=== PATIENT | female | born 1950 | race Caucasian/White ===

== ENCOUNTER 2023-05-31 05:26 | Observation (INO) ==
--- NOTE | 2023-04-20 16:23 | PAT Medication Instructions ---
Medication Instructions Date of Service April 20, 2023 Home Medications amitriptyline 25 mg tablet 25 mg PO DAILY amlodipine 5 mg tablet 5 mg PO DAILY atorvastatin 40 mg tablet 40 mg PO DAILY calcium carbonate 500 mg calcium (1,250 mg) tablet 500 mg PO DAILY ciprofloxacin 0.3 %-dexamethasone 0.1 % ear drops,suspension 4 drp otic (ear) BID diclofenac sodium 1 % topical gel 4 g topical QID fenofibrate 54 mg tablet 54 mg PO DAILY fluticasone propionate 50 mcg/actuation nasal spray,suspension 1 spray intranasal DAILY glipizide 10 mg tablet 10 mg PO DAILY lisinopril 5 mg tablet 5 mg PO DAILY magnesium 250 mg tablet 250 mg PO DAILY metformin 1,000 mg tablet 1,000 mg PO DAILY mirabegron 25 mg tablet,extended release 24 hr (Myrbetriq) 25 mg PO DAILY multivitamin 1 tab PO DAILY omega 0-lir-cnd-fish oil 1,200 mg (144 mg-216 mg) capsule (Fish Oil) 1 cap PO DAILY omeprazole 40 mg capsule,delayed release 40 mg PO DAILY peg 400-propylene glycol 0.4 %-0.3 % eye drops 1 drp ophthalmic (eye) BID PRN Dry Eye(S) potassium chloride 20 mEq oral packet 20 meq PO DAILY sitagliptin phosphate 50 mg tablet (Januvia) 50 mg PO DAILY tenofovir disoproxil fumarate 300 mg tablet 300 mg PO DAILY tolterodine 2 mg tablet 2 mg PO DAILY Continue as directed (With a small sip of water if medications scheduled to be taken in the morning, OTHERWISE NOTHING TO EAT OR DRINK AFTER MIDNIGHT:) amlodipine 5 mg tablet 5 mg PO DAILY atorvastatin 40 mg tablet 40 mg PO DAILY ciprofloxacin 0.3 %-dexamethasone 0.1 % ear drops,suspension 4 drp otic (ear) BID fluticasone propionate 50 mcg/actuation nasal spray,suspension 1 spray intranasal DAILY omeprazole 40 mg capsule,delayed release 40 mg PO DAILY peg 400-propylene glycol 0.4 %-0.3 % eye drops 1 drp ophthalmic (eye) BID PRN Dry Eye(S) ASK your surgeon for instructions diclofenac sodium 1 % topical gel 4 g topical QID ASK your prescriber and surgeon amitriptyline 25 mg tablet 25 mg PO DAILY tenofovir disoproxil fumarate 300 mg tablet 300 mg PO DAILY STOP taking 2 weeks before surgery omega 5-fgo-hpf-fish oil 1,200 mg (144 mg-216 mg) capsule (Fish Oil) 1 cap PO DAILY STOP taking 48 hours before surgery fenofibrate 54 mg tablet 54 mg PO DAILY DO NOT take the morning of surgery calcium carbonate 500 mg calcium (1,250 mg) tablet 500 mg PO DAILY glipizide 10 mg tablet 10 mg PO DAILY lisinopril 5 mg tablet 5 mg PO DAILY magnesium 250 mg tablet 250 mg PO DAILY metformin 1,000 mg tablet 1,000 mg PO DAILY mirabegron 25 mg tablet,extended release 24 hr (Myrbetriq) 25 mg PO DAILY multivitamin 1 tab PO DAILY potassium chloride 20 mEq oral packet 20 meq PO DAILY sitagliptin phosphate 50 mg tablet (Januvia) 50 mg PO DAILY tolterodine 2 mg tablet 2 mg PO DAILY Other Notes If you have any questions please call us at [phone] or [phone] or [phone] or [phone]
--- NOTE | 2023-04-27 14:25 | Anesthesiology Consultation ---
Date of Service April 27, 2023 Assessment & Plan (1) Encounter for pre-operative examination: - Check BSG AM DOS - Infectious disease screening: Per assessment on 04/27/23: No known infectious disease contacts or current infectious disease symptoms. No noted Covid positive test result in past 90 days. - Outpatient joint pathway: Per OR booking comments, plan for outpatient joint program. Patient seen at [facility] 04/27/23. Patient is an acceptable candidate to proceed as possible outpatient joint pathway pending perioperative course. Surgeon's office arranging post-op home management. - Preop testing: Patient unable to void at [facility] visit- per PAT tech, patient planning to drop off urine sample in near future to [place] [facility] (if unable to get to [place] labs, alternative plan to have done at PCP office). Awaiting surgeon-ordered preop UA. Patient otherwise acceptable risk for surgery. Chart Review Chart Review: Patient seen in Pre Admission Testing Teaching & Discussion Pre-Anesthesia Teaching/Discussion Notes: Instructed NPO after midnight before surgery,except medications with 15 cc of water. Medication instructions provided according to the [facility] guidelines. History Surgery Operation Date: 05/31/23 07:15 Proposed Procedures p OP: Right Total Knee Replacement - Horace Mcmahon MD Height/Weight Height: 5 ft 4 in Weight: 60.7 kg Allergies Allergy/AdvReac Type Severity Reaction Status Date / Time Sulfa (Sulfonamide Allergy Unknown Unknown Verified 04/27/23 14:43 Antibiotics) remote reaction Medications Home Medications Medication Instructions Recorded Confirmed Last Taken amitriptyline 25 mg tablet 25 mg PO DAILY 04/20/23 04/20/23 Unknown amlodipine 5 mg tablet 5 mg PO DAILY 04/20/23 04/20/23 Unknown atorvastatin 40 mg tablet 40 mg PO DAILY 04/20/23 04/20/23 Unknown calcium carbonate 500 mg calcium 500 mg PO DAILY 04/20/23 04/20/23 Unknown (1,250 mg) tablet ciprofloxacin 0.3 %-dexamethasone 4 drp otic (ear) BID 04/20/23 04/20/23 Unknown 0.1 % ear drops,suspension diclofenac sodium 1 % topical gel 4 g topical QID 04/20/23 04/20/23 Unknown fenofibrate 54 mg tablet 54 mg PO DAILY 04/20/23 04/20/23 Unknown fluticasone propionate 50 1 spray intranasal DAILY 04/20/23 04/20/23 Unknown mcg/actuation nasal spray,suspension glipizide 10 mg tablet 10 mg PO DAILY 04/20/23 04/20/23 Unknown lisinopril 5 mg tablet 5 mg PO DAILY 04/20/23 04/20/23 Unknown magnesium 250 mg tablet 250 mg PO DAILY 04/20/23 04/20/23 Unknown metformin 1,000 mg tablet 1,000 mg PO DAILY 04/20/23 04/20/23 Unknown mirabegron 25 mg tablet,extended 25 mg PO DAILY 04/20/23 04/20/23 Unknown release 24 hr (Myrbetriq) multivitamin 1 tab PO DAILY 04/20/23 04/20/23 Unknown omega 2-cuz-mix-fish oil 1,200 mg 1 cap PO DAILY 04/20/23 04/20/23 Unknown (144 mg-216 mg) capsule (Fish Oil) omeprazole 40 mg capsule,delayed 40 mg PO DAILY 04/20/23 04/20/23 Unknown release peg 400-propylene glycol 0.4 %-0.3 1 drp ophthalmic (eye) BID PRN Dry 04/20/23 04/20/23 Unknown % eye drops Eye(S) potassium chloride 20 mEq oral 20 meq PO DAILY 04/20/23 04/20/23 Unknown packet sitagliptin phosphate 50 mg tablet 50 mg PO DAILY 04/20/23 04/20/23 Unknown (Januvia) tenofovir disoproxil fumarate 300 300 mg PO DAILY 04/20/23 04/20/23 Unknown mg tablet tolterodine 2 mg tablet 2 mg PO DAILY 04/20/23 04/20/23 Unknown Past Medical History Medical History Diabetes mellitus, type 2 GERD (gastroesophageal reflux disease) History of hepatitis B Taking MEDICATION, no recent issues Hyperlipidemia Hypertension Nasal hemorrhage Hx 2021, treatment "with balloon" in [facility] Overactive bladder Exercise / Class Metabolic Activity II 4-5 Yardwork/Stairs/Walk up hill Past Family History Family History Son Diabetes Past Surgical History Surgical History History of cataract surgery R/L History of cholecystectomy History of colonoscopy History of corneal transplant History of endoscopic sinus surgery History of tooth extraction Hx of breast biopsy with cyst excision Hx of breast surgery Cyst removal Past Anesthesia History No Hx of Anesthesia Complications and No Family Hx of Anesthesia Complications History of PONV No Hx of PONV and No Hx of Motion Sickness Social History Smoking Status: Former smoker Do You Dip or Chew Tobacco: No Smoking End Date: Quit 2021 Hx Alcohol Use: No Hx Substance Use: No substance use type: does not use Review of Systems Patient denies chest pain, shortness of breath, dyspnea on exertion, fever, chills, cough, wheezing, palpitations. Physical Exam Vital Signs VITALS BP 131/78 P 84 TEMP 98.7 SP02 94%RA RESP 18 PHYSICAL Full cervical extension range of motion. Full TMJ range of motion. TMD 3 finger breaths Mallampati Score 2 Dentition: full upper denture, several missing lower teeth Lungs: clear throughout to auscultation Cardiac: regular rate and rhythm, no murmurs noted Spine: normal Carotid arteries: negative bruit Extremities: no LE edema Lab Results Anesthesia Preop Results Results Anesthesia Widget: WBC 9.69 K/ul (4.8-10.8) 04/27/23 Hgb 12.0 g/dl (12.0-16.0) 04/27/23 Hct 38.0 % (37.0-47.0) 04/27/23 Plt 374 K/uL (130-400) 04/27/23 Na 138 mmol/L (136-145) 04/27/23 K 3.3 mmol/L (3.5-5.1) L 04/27/23 Cl 101 mmol/L (98-107) 04/27/23 CO2 29 mmol/L (21-32) 04/27/23 BUN 19 mg/dl (6-23) 04/27/23 Creat 0.89 mg/dl (0.6-1.2) 04/27/23 Glucose Level 106 mg/dl (70-99(Fasting)) H 04/27/23 PT 11.3 Seconds (9.0-12.0) 04/27/23 PTT 31.5 Seconds (21.0-31.0) H 04/27/23 INR 1.0 (0.9-1.1) 04/27/23 HA1c 6.7 % (4.5-5.6) H 04/27/23 Blood Type O Positive 04/27/23 Antibody Screen NEGATIVE 04/27/23 Testing Electrocardiogram Date: 04/27/23 NSR at 84bpm. Chest X-Ray Date: 04/27/23 FINDINGS: Cardiomediastinal and hilar silhouettes are within normal limits. No pneumothorax, pleural effusion, airspace consolidation or pulmonary edema. Cholecystectomy. Bones appear grossly intact. IMPRESSION: No acute process.
--- NOTE | 2023-05-30 07:26 | History & Physical Report ---
Date of Service May 30, 2023 Assessment & Plan (1) Right knee DJD: Plan: Plan is for right patient-specific total knee possible same-day surgery History of Present Illness Chief Complaint: Right knee pain Primary Care Provider: NO PCP Patient is a 72-year-old female with greater than 2-year history of right knee pain. She lives in [place] but presents to the office for evaluation because her family lives nearby. She relates weakness instability and pain 7 out of 10 with all activities of daily living. She requires a cane or walker at all times because of pain and instability. She has radiographic evidence of advanced disease and has failed both injections of both corticosteroid and viscosupplementation. She has a medical history positive for type 2 diabetes her current A1c is 6.6. Allergies Allergy/AdvReac Type Severity Reaction Status Date / Time Sulfa (Sulfonamide Allergy Unknown Unknown Verified 04/27/23 14:43 Antibiotics) remote reaction Home Medications Medication Instructions Recorded Confirmed Type amitriptyline 25 mg tablet 25 mg PO DAILY 04/20/23 04/20/23 History amlodipine 5 mg tablet 5 mg PO DAILY 04/20/23 04/20/23 History atorvastatin 40 mg tablet 40 mg PO DAILY 04/20/23 04/20/23 History calcium carbonate 500 mg calcium 500 mg PO DAILY 04/20/23 04/20/23 History (1,250 mg) tablet ciprofloxacin 0.3 %-dexamethasone 4 drp otic (ear) BID 04/20/23 04/20/23 History 0.1 % ear drops,suspension diclofenac sodium 1 % topical gel 4 g topical QID 04/20/23 04/20/23 History fenofibrate 54 mg tablet 54 mg PO DAILY 04/20/23 04/20/23 History fluticasone propionate 50 1 spray intranasal DAILY 04/20/23 04/20/23 History mcg/actuation nasal spray,suspension glipizide 10 mg tablet 10 mg PO DAILY 04/20/23 04/20/23 History lisinopril 5 mg tablet 5 mg PO DAILY 04/20/23 04/20/23 History magnesium 250 mg tablet 250 mg PO DAILY 04/20/23 04/20/23 History metformin 1,000 mg tablet 1,000 mg PO DAILY 04/20/23 04/20/23 History mirabegron 25 mg tablet,extended 25 mg PO DAILY 04/20/23 04/20/23 History release 24 hr (Myrbetriq) multivitamin 1 tab PO DAILY 04/20/23 04/20/23 History omega 7-rzi-riy-fish oil 1,200 mg 1 cap PO DAILY 04/20/23 04/20/23 History (144 mg-216 mg) capsule (Fish Oil) omeprazole 40 mg capsule,delayed 40 mg PO DAILY 04/20/23 04/20/23 History release peg 400-propylene glycol 0.4 %-0.3 1 drp ophthalmic (eye) BID PRN Dry 04/20/23 04/20/23 History % eye drops Eye(S) potassium chloride 20 mEq oral 20 meq PO DAILY 04/20/23 04/20/23 History packet sitagliptin phosphate 50 mg tablet 50 mg PO DAILY 04/20/23 04/20/23 History (Januvia) tenofovir disoproxil fumarate 300 300 mg PO DAILY 04/20/23 04/20/23 History mg tablet tolterodine 2 mg tablet 2 mg PO DAILY 04/20/23 04/20/23 History Past Med/Surg History Medical History History of hepatitis B Taking MEDICATION, no recent issues Nasal hemorrhage Hx 2021, treatment "with balloon" in [facility] GERD (gastroesophageal reflux disease) Diabetes mellitus, type 2 Overactive bladder Hyperlipidemia Hypertension Surgical History Hx of breast biopsy with cyst excision History of corneal transplant History of cataract surgery R/L History of cholecystectomy Hx of breast surgery Cyst removal History of colonoscopy History of tooth extraction History of endoscopic sinus surgery Family History Son Diabetes Social History Smoking Status: Former smoker Smoking End Date: Quit 2021; Second Hand Exposure: No; Do You Dip or Chew Tobacco: No; Tobacco Cessation Education Requested by Patient: No Hx Alcohol Use: No Hx Substance Use: No Preferred Language: Luxembourgish Communication Ability: Effective Components Engineer Required: No Beliefs That Will Affect Care: None Current Living Situation: Significant Other Other Information That Helps Us Care for You: No Feels Safe at Home: Yes Safety Concerns: Feels Safe At This Time Assistive Devices: Denture - Upper, Denture - Lower and Glasses Review of Systems Review of Systems: Knee pain Physical Exam Physical Exam: General: Thin statured woman who appears her stated age HEENT: NCAT, EOMI, PERRLA Neck: Negative bruits or JVD Heart: Regular rate and rhythm without murmurs or gallops Lungs: Breath sounds clear and present in all zimmer Abdomen: Flat soft nontender bowel sounds positive Extremities: Right knee shows varus deformity range of motion is 3 to 110 degrees passively with 3 mm medial laxity positive effusion and pain Neurological and vascular: Intact Results & Data Results & Data Vital Signs (Past 12 Hours) Weight is 54 kg BMI 21 Blood pressure 130/84 Pulse 84
--- NOTE | 2023-05-30 15:03 | History & Physical Report ---
Date of Service May 30, 2023 Assessment & Plan (1) Left knee DJD: Plan: This is an addendum to the admission history and physical Trell Gutierrez. The patient also has DJD of the left knee and will have an intra-articular injection of the left knee performed during her surgical procedure. History of Present Illness Primary Care Provider: NO PCP Allergies Allergy/AdvReac Type Severity Reaction Status Date / Time Sulfa (Sulfonamide Allergy Unknown Unknown Verified 04/27/23 14:43 Antibiotics) remote reaction Home Medications Medication Instructions Recorded Confirmed Type amitriptyline 25 mg tablet 25 mg PO DAILY 04/20/23 04/20/23 History amlodipine 5 mg tablet 5 mg PO DAILY 04/20/23 04/20/23 History atorvastatin 40 mg tablet 40 mg PO DAILY 04/20/23 04/20/23 History calcium carbonate 500 mg calcium 500 mg PO DAILY 04/20/23 04/20/23 History (1,250 mg) tablet ciprofloxacin 0.3 %-dexamethasone 4 drp otic (ear) BID 04/20/23 04/20/23 History 0.1 % ear drops,suspension diclofenac sodium 1 % topical gel 4 g topical QID 04/20/23 04/20/23 History fenofibrate 54 mg tablet 54 mg PO DAILY 04/20/23 04/20/23 History fluticasone propionate 50 1 spray intranasal DAILY 04/20/23 04/20/23 History mcg/actuation nasal spray,suspension glipizide 10 mg tablet 10 mg PO DAILY 04/20/23 04/20/23 History lisinopril 5 mg tablet 5 mg PO DAILY 04/20/23 04/20/23 History magnesium 250 mg tablet 250 mg PO DAILY 04/20/23 04/20/23 History metformin 1,000 mg tablet 1,000 mg PO DAILY 04/20/23 04/20/23 History mirabegron 25 mg tablet,extended 25 mg PO DAILY 04/20/23 04/20/23 History release 24 hr (Myrbetriq) multivitamin 1 tab PO DAILY 04/20/23 04/20/23 History omega 5-hfx-zou-fish oil 1,200 mg 1 cap PO DAILY 04/20/23 04/20/23 History (144 mg-216 mg) capsule (Fish Oil) omeprazole 40 mg capsule,delayed 40 mg PO DAILY 04/20/23 04/20/23 History release peg 400-propylene glycol 0.4 %-0.3 1 drp ophthalmic (eye) BID PRN Dry 04/20/23 04/20/23 History % eye drops Eye(S) potassium chloride 20 mEq oral 20 meq PO DAILY 04/20/23 04/20/23 History packet sitagliptin phosphate 50 mg tablet 50 mg PO DAILY 04/20/23 04/20/23 History (Januvia) tenofovir disoproxil fumarate 300 300 mg PO DAILY 04/20/23 04/20/23 History mg tablet tolterodine 2 mg tablet 2 mg PO DAILY 04/20/23 04/20/23 History Past Med/Surg History Medical History History of hepatitis B Taking MEDICATION, no recent issues Nasal hemorrhage Hx 2021, treatment "with balloon" in [facility] GERD (gastroesophageal reflux disease) Diabetes mellitus, type 2 Overactive bladder Hyperlipidemia Hypertension Surgical History Hx of breast biopsy with cyst excision History of corneal transplant History of cataract surgery R/L History of cholecystectomy Hx of breast surgery Cyst removal History of colonoscopy History of tooth extraction History of endoscopic sinus surgery Family History Son Diabetes Social History Smoking Status: Former smoker Smoking End Date: Quit 2021; Second Hand Exposure: No; Do You Dip or Chew Tobacco: No; Tobacco Cessation Education Requested by Patient: No Hx Alcohol Use: No Hx Substance Use: No Preferred Language: Bear Communication Ability: Effective Is Project Manager Required: No Beliefs That Will Affect Care: None Current Living Situation: Significant Other Other Information That Helps Us Care for You: No Feels Safe at Home: Yes Safety Concerns: Feels Safe At This Time Assistive Devices: Denture - Upper, Denture - Lower and Glasses
[2023-05-31] MEDS ORDERED: TRANEXAMIC ACID 1,000 MG **IV Intra-op IV SCH (06:00)
[2023-05-31] MEDS ORDERED: ROPIVACAINE 0.5% HCL/PF 150 MG, BUPIVACAINE 0.75% MPF 20 ML, EPINEPHrine 30MG/30ML (OR ... INSTIL SCH (06:00)
[2023-05-31] MEDS ORDERED: LIDOCAINE 1% LOCAL 20 ML VIAL INFIL SCH (06:00)
[2023-05-31] MEDS ORDERED: methylPREDNISolone acetate 80 MG/ML VIAL IA SCH (06:00)
[2023-05-31] MEDS ORDERED: GABAPENTIN 300 MG CAP PO SCH (06:00)
[2023-05-31] MEDS ORDERED: LR 500ML BOLUS, THEN 15ML/HR IV SCH (06:00)
[2023-05-31] MEDS ORDERED: ACETAMINOPHEN 500 MG TAB PO SCH (06:00)
[2023-05-31] MEDS ORDERED: TRANEXAMIC ACID 1,000 MG **IV Pre-op IV SCH (06:00)
[2023-05-31] MEDS ORDERED: LR 60ML/HR IV SCH (06:00)
[2023-05-31] MEDS ORDERED: traMADol HCL 50 MG TABLET PO SCH (06:00)
[2023-05-31] MEDS ORDERED: FAMOTIDINE 20 MG TAB PO SCH (06:00)
[2023-05-31] MEDS ORDERED: dexAMETHasone 4 MG TAB PO SCH (06:00)
[2023-05-31] MEDS ORDERED: METOCLOPRAMIDE HCL 10 MG TABLET PO SCH (06:00)
[2023-05-31] MEDS ORDERED: ceFAZolin 2000MG 2,000 MG/15 ML SYR IV SCH (06:00)
[2023-05-31] MEDS ORDERED: MEPIVACAINE HCL 1.5% 30 ML VIAL ONE (06:18)
[2023-05-31] MEDS ORDERED: ROPIVACAINE 0.5% 5 MG/ML 30 ML VIAL ONE (06:18)
--- NOTE | 2023-05-31 06:25 | History & Physical Bridge Note ---
Date of Service May 31, 2023 History & Physical Bridge Note I have examined the patient, reviewed the History & Physical and in the interval since the performance of the History & Physical I have noted the following changes of clinical significance: no changes noted
[2023-05-31] MEDS ORDERED: fentaNYL citrate PF 100 MCG/2 ML VIAL ONE (06:43)
[2023-05-31] MEDS ORDERED: LIDOCAINE 2% 2 ML VIAL/AMP(20MG/ML) INFIL ONE (06:43)
[2023-05-31] MEDS ORDERED: PROPOFOL IV EMULSION 10 MG/ML 20 ML VIAL IV ONE (06:43)
[2023-05-31] MEDS ORDERED: MIDAZOLAM HCL 1 MG/ML 2ML VIAL ONE (06:43)
[2023-05-31] MEDS ORDERED: ORTHO JOINT ANESTHETIC ONE (07:00)
[2023-05-31] MEDS ORDERED: LIDOCAINE 1% LOCAL 20 ML VIAL ONE (07:01)
[2023-05-31] MEDS ORDERED: methylPREDNISolone acetate 80 MG/ML VIAL ONE (07:01)
[2023-05-31] MEDS ORDERED: ONDANSETRON INJ 2 MG/ML 2 ML VIAL IV PRN ×2 (07:35→10:28)
[2023-05-31] MEDS ORDERED: ATROPINE SULFATE 0.1 MG/ML 10ML SYR IV PRN (07:35)
[2023-05-31] MEDS ORDERED: fentaNYL citrate PF 100 MCG/2 ML VIAL IV PRN (07:35)
[2023-05-31] MEDS ORDERED: ePHEDrine sulfate 50 MG/ML AMP IV PRN (07:35)
[2023-05-31] MEDS ORDERED: HYDROmorphone INJ 2 MG/ML SYR/VIAL IV PRN (07:35)
[2023-05-31] MEDS ORDERED: PROMETHAZINE HCL 12.5 MG in SODIUM CHLORIDE 0.9% 50 ML IV PRN (07:35)
[2023-05-31] MEDS ORDERED: KETOROLAC 30 MG/ML VIAL ONE (08:28)
--- NOTE | 2023-05-31 09:02 | Post Operative Brief Note ---
Immediate Post Op Note v1 Date of Surgery May 31, 2023 Pre & Post Diagnosis Operation Date: 05/31/23 07:15 Pre-Op Diagnosis: Right Knee Degenerative Joint Disease Post-Op Diagnosis: Right Knee Degenerative Joint Disease I identified the patient and participated in the time-out.: Yes Procedure Operation Date: 05/31/23 07:15 Actual Procedures p Right Total Knee Arthroplasty, Cemented(Right) - Horace Mcmahon MD s Left Knee Intra-Articular Injection(Left) - Horace Mcmahon MD Surgeon Horace Mcmahon MD Actuarial Trainee None Estimated Blood Loss 50 Findings Consistent with Post-Op Diagnosis Drains Hemovac Drain
--- NOTE | 2023-05-31 09:25 | Operative Report ---
Post Operative Report Pre & Post Diagnosis Operation Date: 05/31/23 07:15 Pre-Op Diagnosis: Right Knee Degenerative Joint Disease Post-Op Diagnosis: Right Knee Degenerative Joint Disease I identified the patient and participated in the time-out.: Yes Procedure Operation Date: 05/31/23 07:15 Actual Procedures p Right Total Knee Arthroplasty, Cemented(Right) - Horace Mcmahon MD s Left Knee Intra-Articular Injection(Left) - Horace Mcmahon MD Surgeon Horace Mcmahon MD Network Pricing Consultant None Estimated Blood Loss 50 Findings Consistent with Post-Op Diagnosis Severe degenerative changes in all 3 compartments of the knee Specimens Bone and cartilage fragments Indications Patient is a 72-year-old woman with end-stage arthritis of the knee which has failed conservative management. Components used: P[employer]kh [employer] Nephew journey 2 posterior stabilized knee system: Femur size 4 with Oxinium coating, tibia size 3 x 10, patella size 32 oval. Description of Procedure Following satisfactory spinal anesthesia the patient was supine on the operating room table. The right lower extremity was prepared with ChloraPrep and draped sterilely. A surgical timeout was performed. A midline incision was made with a median parapatellar arthrotomy. Hemostasis was obtained. The knee showed the changes noted above. The patella was freehand cut and sized for 32 button which improved exposure to the lateral compartment of the knee. The cruciate ligaments were excised. The patient matched femoral block was applied. Femoral distal rotation and resection were setting completed. The 4-in-1 block was then used to finish preparation of the femur. The patient matched tibial block was applied. Tibial resection was completed. Soft tissue balancing was completed in flexion and extension. A trial reduction with the above-mentioned components was performed and showed good tensioning and stability of the collateral ligaments stable range of motion and the patella tracked well throughout. The trial components were removed. The capsule was prepared with the orthopedic cocktail. After irrigation and drying the components were cemented using Lisa Z be cement cementing the tibia first, femur second, and patella third. When the cemented hardened the knee was checked and showed good stability and tracking. The wound was irrigated with 500 cc of experience irrigation. A Hemovac drain was placed. The arthrotomy was closed with interrupted [id number] sutures of 1 Vicryl and a running suture of 0 strata fix. The subcutaneous tissues were closed with 2 oh strata fix deep and 3 oh strata fix subcuticular. A Prineo dressing followed by a negative pressure wound dressing and a compression bandage was applied. A second surgical timeout was performed. The left knee was prepared with ChloraPrep and alcohol and injected with 80 mg of Depo-Medrol and 6 cc of 1% lidocaine through an inferior medial portal. A dry dressing was applied. The patient was returned to her bed in stable condition. I attest to the content of the Intraoperative Record and any orders documented therein. Any exceptions are noted below.
--- NOTE | 2023-05-31 10:21 | Anesthesiology Progress Note ---
Date of Service May 31, 2023 Anesthesia Post Procedure Vital Signs Vital Signs: Temp Pulse Pulse Resp BP Pulse Ox O2 Del Method 05/31/23 10:00 36.4 C L 76 12 132/72 99 Nasal Cannula 05/31/23 09:50 76 14 128/80 92 Room Air 05/31/23 09:40 73 14 117/74 99 Room Air 05/31/23 09:30 73 12 136/71 100 Nasal Cannula 05/31/23 09:20 74 12 135/82 100 Nasal Cannula 05/31/23 09:09 36.4 C L 76 14 138/81 100 Nasal Cannula 05/31/23 05:49 36.8 C 85 18 162/89 H 99 Room Air O2 Flow Rate 05/31/23 10:00 2 05/31/23 09:50 05/31/23 09:40 05/31/23 09:30 2 05/31/23 09:20 2 05/31/23 09:09 2 05/31/23 05:49 Pain Intensity Right Knee: Pain Intensity: 4 Transfer of Care Handoff Completed per policy Notes Mental Status: alert / awake / arousable and participated in evaluation Nausea / Vomiting: adequately controlled Pain: adequately controlled Airway Patency, RR, SpO2: stable & adequate BP & HR: stable & adequate Hydration State: stable & adequate Neuraxial Anesthesia: was administered and sensory block is resolving Anesthetic Complications: no major complications apparent and Pt Satisfied with anesthetic care
[2023-05-31] MEDS ORDERED: bisacodyL 10 MG SUPP PR PRN (10:28)
[2023-05-31] MEDS ORDERED: METOCLOPRAMIDE HCL INJ 5 MG/ML 2 ML VIAL IV PRN (10:28)
[2023-05-31] MEDS ORDERED: NALOXONE HCL 0.4 MG/1 ML VIAL/CARP IV PRN (10:28)
[2023-05-31] MEDS ORDERED: PHARMACY GLYCEMIC MGMT CONSULT PRN (10:28)
[2023-05-31] MEDS ORDERED: MAGNESIUM HYDROXIDE SUSP 30 ML UDC PO PRN (10:28)
[2023-05-31] MEDS: SODIUM CHLORIDE 0.9% 1,000 ML IV SCH ×2 (10:57→19:57)
--- NOTE | 2023-05-31 13:23 | Pharmacy Report ---
Pharmacy Glycemic Short Note 2 - Date of Service May 31, 2023 - Glycemic Short BSG Results (Last 24 hours): 05/31/23 05/31/23 05/31/23 06:04 09:13 11:33 POC Glucose 112 H 164 H 172 H OUTPATIENT ANTIDIABETIC REGIMEN: * Glipizide 10 mg PO daily * Metformin 1,000 mg PO daily * Januvia 50 mg PO daily * HbA1c: 6.7% (04/27/23) ASSESSMENT: * Ms Gutierrez is a 72yo diabetic F, POD 0 s/p R TKA with Dr Mcmahon this morning. * Pt received 8mg PO dexamethasone pre-op, and also received an ortho mix containing DXM. Expect to see some steroid-induced hyperglycemia. * Pt's PO home regimen was held on admission and pt was initiated on SQ basal/bolus insulin regimen. * Pharmacy will continue to follow and adjust regimen as indicated. PLAN FOR INPATIENT GLYCEMIC CONTROL: * Hold outpatient oral diabetes medications * Basal insulin * Lantus 20 units SQ x1 dose this afternoon * Bolus insulin * NovoLog per scale ACHS or Q6hrs while NPO * Goal Range: Low 110 mg/dL - High 140 mg/dL * Correction Factor: 30 mg/dL/unit * Nutritional / Prandial insulin per carb ratio of 1 unit per 10 grams CHO consumed
[2023-05-31] MEDS ORDERED: GLUCAGON FOR INJ 1 MG VIAL IM PRN (13:30)
[2023-05-31] MEDS ORDERED: CARBOHYDRATES FOR HYPOGLYCEMIA PO PRN (13:30)
[2023-05-31] MEDS ORDERED: DEXTROSE 50% 50 ML SYRINGE IV PRN (13:30)
[2023-05-31] MEDS ORDERED: GLUCOSE 40% GEL 15 GM TUBE PO PRN (13:30)
[2023-05-31] MEDS ORDERED: GLUCOSE 10 TAB/TUBE PO PRN (13:30)
[2023-05-31] MEDS: ceFAZolin 1000MG 1,000 MG/7.5 ML SYR IV SCH ×2 (16:11→22:25)
[2023-05-31] MEDS ORDERED: LANTUS PER UNIT CHARGE SC ONE (16:30)
[2023-05-31] MEDS: INSULIN ASPART PER UNIT CHARGE SC SCH ×2 (17:31→20:43)
[2023-05-31] MEDS: DOCUSATE SODIUM 100 MG CAP PO SCH (19:58)
[2023-05-31] MEDS: ASPIRIN 81 MG ECTAB PO SCH (19:58)
[2023-05-31] MEDS ORDERED: SENNA 8.6 MG TAB PO SCH (21:00)
[2023-05-31] MEDS: traMADol HCL 50 MG TABLET PO PRN (22:24)
[2023-06-01] MEDS: traMADol HCL 50 MG TABLET PO PRN (04:56)
[2023-06-01] MEDS ORDERED: LANTUS PER UNIT CHARGE SC ONE (08:00)
--- NOTE | 2023-06-01 08:00 | Orthopedic Progress Note ---
Date of Service June 01, 2023 Assessment & Plan (1) Status post right knee replacement: Plan: 72 yo female stable POD #1 s/p right TKA 1. Med management 2. DVT prophylaxis- ASA, SCDs 3. PT/OT 4. D/C planning- home w/ HH Admission and Anticipated Discharge Date Admission Date: May 31, 2023 Subjective Pt resting in bed, denies complaints, pain controlled Physical Exam Physical Exam: Dressing/drain intact, NICKY in place, toes mobile, NVI Results & Data Vital Signs (Past 12 Hours) Vital Signs Temp Pulse Resp BP Pulse Ox O2 Del Method 06/01/23 03:30 36.5 C 80 18 122/73 95 Room Air 05/31/23 22:33 36.5 C 89 18 127/75 96 Room Air Laboratory Results 06/01/23 06/01/23 05/31/23 Range/Units 07:49 07:38 20:36 WBC Pending RBC Pending Hgb Pending Hct Pending MCV Pending MCH Pending MCHC Pending Plt Count Pending Sodium Pending Potassium Pending Chloride Pending Carbon Dioxide Pending Anion Gap Pending BUN Pending Creatinine Pending Est Cr Clr Drug Dosing Pending Est GFR ( Amer) Pending Est GFR (Non-Af Amer) Pending BUN/Creatinine Ratio Pending Glucose Pending POC Glucose 153 H 185 H (70-99) mg/dl Calcium Pending 05/31/23 05/31/23 05/31/23 Range/Units 16:30 11:33 09:13 WBC RBC Hgb Hct MCV MCH MCHC Plt Count Sodium Potassium Chloride Carbon Dioxide Anion Gap BUN Creatinine Est Cr Clr Drug Dosing Est GFR ( Amer) Est GFR (Non-Af Amer) BUN/Creatinine Ratio Glucose POC Glucose 220 H 172 H 164 H (70-99) mg/dl Calcium
[2023-06-01 08:05] LABS: Hematocrit (blood only) 30.5 % (37.0-47.0); Mean Corpuscular Hemoglobin 23.4 pg (25.0-34.0); Mean Corpuscular Hgb Conc 32.8 g/dL (32.0-36.0); Mean Corpuscular Volume 71.3 fL (80.0-100.0); Mean Platelet Volume 10.6 fL (9.4-12.4); Platelet Count 278 K/uL (130-400); RDW Coefficient of Variation 14.5 % (11.5-14.5); RDW Standard Deviation 36.3 fL (36.4-46.3); Red Blood Count 4.28 M/uL (4.20-5.40); White Blood Count 17.15 K/ul (4.8-10.8)
[2023-06-01] MEDS: INSULIN ASPART PER UNIT CHARGE SC SCH (08:08)
[2023-06-01] MEDS: ASPIRIN 81 MG ECTAB PO SCH (08:09)
[2023-06-01] MEDS: DOCUSATE SODIUM 100 MG CAP PO SCH (08:09)
[2023-06-01 08:23] VITALS: BP 122/71; PULSE 74; RESP 16; TEMP 97.5; O2SAT 92
[2023-06-01 08:26] LABS: BUN Creatinine Ratio 20.3 (10-20); Calcium 9.3 mg/dl (8.6-10.3); Creatinine Clr Calc Pharmacy 57.2 ml/min; Est GFR (African American) 87.9 ml/min; Est GFR (Non-African American) 75.8 ml/min; Potassium 3.5 mmol/L (3.5-5.1)
[2023-06-01] MEDS ORDERED: glipiZIDE 5 MG TAB PO SCH (09:00)
[2023-06-01] MEDS ORDERED: amLODIPine BESYLATE 5 MG TAB PO SCH (09:00)
[2023-06-01] MEDS ORDERED: SITagliptin PHOSPHATE 25 MG TAB PO SCH (09:00)
[2023-06-01] MEDS ORDERED: AMITRIPTYLINE HCL 25 MG TAB PO SCH (09:00)
[2023-06-01] MEDS ORDERED: oxyBUTYnin chloride 5 MG TAB PO SCH (09:00)
[2023-06-01] MEDS ORDERED: lisinopril 5 MG TAB PO SCH (09:00)
[2023-06-01] MEDS ORDERED: MULTIVITAMIN TAB PO SCH (09:00)
[2023-06-01] MEDS ORDERED: metFORMIN HCL 500 MG TAB PO SCH (09:00)
== END 2023-06-01 11:39 | disposition home health service (06) ==
LOC: ASU 05:26 → 3E 05:26
DX: Z79.899 Other long term (current) drug therapy; Z79.84 Long term (current) use of oral hypoglycemic drugs; Z86.19 Personal history of other infectious and parasitic diseases; E78.5 Hyperlipidemia, unspecified; E11.9 Type 2 diabetes mellitus without complications; K21.9 Gastro-esophageal reflux disease without esophagitis; Z87.891 Personal history of nicotine dependence; I10 Essential (primary) hypertension; Z88.2 Allergy status to sulfonamides; M17.11 Unilateral primary osteoarthritis, right knee